=== PATIENT | male | born 1945 | race Caucasian/White ===

== ENCOUNTER → 2016-05-12 | Outpatient (CLI) | payer MEDICARE | LOC: GMAB 18:14 | PROVIDERS: ATTEND Family Medicine | DX: R06.02 Shortness of breath (principal) ==

== ENCOUNTER 2016-08-17 21:14 | Inpatient (IN) | payer MEDICARE ==
[2016-08-17] MEDS ORDERED: SODIUM CHLORIDE 0.9% 1000ML 1,000 ML IVS ONE (22:54)
[2016-08-17] MEDS ORDERED: PIPERACILLIN/TAZOBACTAM 3.375 GM in SODIUM CHLORIDE 0.9% 100ML 100 ML IVPB ONE (22:55)
[2016-08-17] MEDS ORDERED: MORPHINE SULFATE INJ 10 MG/ML VIAL IV ONE (22:55)
[2016-08-17] MEDS ORDERED: ACETAMINOPHEN 325 MG TAB PO ONE (23:16)
[2016-08-17] MEDS ORDERED: IBUPROFEN 200 MG TAB PO ONE (23:17)
[2016-08-18] MEDS ORDERED: PIPERACILLIN/TAZOBACTAM 3.375 GM VIAL IVPB ONE ×3 (00:09→07:27)
[2016-08-18] MEDS ORDERED: SODIUM CHLORIDE 0.9% 100ML 100 ML IVPB ONE ×3 (00:09→07:27)
--- NOTE | 2016-08-18 00:16 | CT ---
EXAM: CT abdomen and pelvis with contrast. INDICATION: Abdominal pain, acute. TECHNIQUE: Contiguous axial CT images of the abdomen and pelvis. Intravenous contrast: Present. Oral contrast: Absent. DLP 907 mGy-cm. This exam was performed according to our departmental dose-optimization program, which includes automated exposure control, adjustment of the mA and/or kV according to patient size and/or use of iterative reconstruction technique. COMPARISON: 04/15/2010. FINDINGS: Lower chest: Partially imaged. Lung bases: Unremarkable. Cardiac apex: Unremarkable. Solid abdominal viscera: Liver: Unremarkable. Gallbladder: Unremarkable. Pancreas: Unremarkable. Spleen: Unremarkable. Adrenal glands: Unremarkable. Right kidney: No hydronephrosis. Left kidney: No hydronephrosis. Urinary bladder: Unremarkable. Abdominal aorta: Unremarkable. Peritoneal: Free fluid: None. Free air: None. Other: No pathologic sized lymph nodes in the upper abdomen. Bowel: Stomach: Unremarkable. Small bowel: Unremarkable. Appendix: Unremarkable. Colon: Unremarkable. Rectum: Unremarkable. Prostate: Brachytherapy seeds are noted Bones: Unremarkable. IMPRESSION: 1. No CT evidence of acute process of the abdomen. Electronically signed by: Shahram Londono MD 08/18/2016 12:15 AM CDT
[2016-08-18] MEDS ORDERED: MORPHINE SULFATE INJ 10 MG/ML VIAL ONE (00:23)
[2016-08-18] MEDS ORDERED: KETOROLAC TROMETHAMINE INJ 30 MG/ML VIAL IV ONE (00:28)
[2016-08-18] MEDS ORDERED: POTASSIUM CHLORIDE ELIXIR 20 MEQ/15 ML UD ONE (00:44)
[2016-08-18] MEDS: POTASSIUM CHLORIDE ELIXIR 20 MEQ/15 ML UD PO ONE (00:50)
--- NOTE | 2016-08-18 01:09 | ED.PDOC ---
History of Present Illness - General Chief Complaint: Abdominal Pain Stated Complaint: fever, abd, back pain Time Seen by Provider: 08/17/16 22:44 Source: patient Exam Limitations: no limitations - History of Present Illness Initial Comments: the patient is a 71-year-old male presenting to the emergency room after approximately 24 hours of progressive abdominal pain area he has abdominal discomfort all over but the worst of it seems to be in the right side of the abdomen more so in the right lower quadrant. There is some radiation of pain to the back. No urinary symptoms. No pain down the testicle. He does have a known hydrocele on the right. The patient does have a history of significant vascular disease including requiring interventions for his renal arteries and iliacs. He does have a fever here and has had for about the last 6 hours. He apparently still has his appendix and his gallbladder. He had a little bit of mild nausea but no vomiting. No chest pain. No syncope or near syncope. No palpitations. Severity: moderate Improving Factors: nothing Worsening Factors: other - palpation and movement Associated Symptoms: fever/chills, loss of appetite, malaise Allergies/Adverse Reactions: Allergies NO KNOWN ALLERGY Allergy (Verified 04/02/15 08:44) Home Medications: Ambulatory Orders ALPRAZolam [Xanax] 0.25 mg PO TID 04/02/15 Allopurinol [Zyloprim] 300 mg PO BEDTIME 04/02/15 Aspirin 325 mg PO QD 04/02/15 Celecoxib 200 mg PO BEDTIME 04/02/15 Citalopram Hydrobromide 40 mg PO BEDTIME 04/02/15 Clopidogrel Bisulfate [Plavix] 75 mg PO QD 04/02/15 Furosemide 40 mg PO DAILY 04/02/15 Hydrochlorothiazide 25 mg PO DAILY@0700 04/02/15 Irbesartan 150 mg PO BID 04/02/15 Isosorbide Mononitrate [Isosorbide Mononitrate ER] 15 mg PO BID 04/02/15 Minoxidil 5 mg PO BID 04/02/15 Nitroglycerin 0.4 mg Tab [Nitrostat] 0.4 mg SL PRN PRN 04/02/15 Omeprazole 40 mg PO DAILY@0700 04/02/15 Potassium Chloride Tab [Micro-K] 10 meq PO BID 04/02/15 Ropinirole Hydrochloride [Ropinirole HCl] 4 mg PO BEDTIME 04/02/15 Rosuvastatin Calcium [Crestor] 5 mg PO BEDTIME 04/02/15 Tramadol HCl 50 mg PO Q4HR PRN 04/02/15 Zolpidem Tartrate 10 mg PO BEDTIME 04/02/15 amLODIPine BESYLATE [Norvasc] 10 mg PO BEDTIME 04/02/15 Cyclobenzaprine HCl [Flexeril] 10 mg PO Q8H PRN #40 tab 04/05/15 HYDROcodone 5MG/APAP 325MG [Randle 5/325] 1 ea PO .Q4-6H PRN #90 tab 04/05/15 Rivaroxaban [Xarelto] 10 mg PO QD #10 tab 04/05/15 Review of Systems - Review of Systems Constitutional: States: fever, malaise EENTM: States: no symptoms reported Respiratory: States: no symptoms reported Cardiology: States: no symptoms reported Gastrointestinal/Abdominal: States: abdominal pain, nausea Genitourinary: States: no symptoms reported Musculoskeletal: States: back pain - on the right Skin: States: no symptoms reported Neurological: States: no symptoms reported Endocrine: States: no symptoms reported All other Systems: No Change from Baseline Past Medical History (General) - Patient Medical History Hx Seizures: No Hx Stroke: No Hx Dementia: No Hx Asthma: No Hx of COPD: No Hx Cardiac Disorders: Yes Hx Congestive Heart Failure: No Hx Pacemaker: No Hx Hypertension: Yes Hx Thyroid Disease: No Hx Diabetes: Yes Hx Gastroesophageal Reflux: Yes Hx Renal Disease: No Hx Cancer: Yes Hx of HIV: No Hx Hepatitis C: No Hx MRSA: No - Vaccination History Hx Tetanus, Diphtheria Vaccination: Yes Hx Influenza Vaccination: Yes Hx Pneumococcal Vaccination: Yes Immunizations Up to Date: Yes - Social History Hx Tobacco Use: No Hx Chewing Tobacco Use: No Hx Alcohol Use: No Hx Substance Use: No Hx Substance Use Treatment: No Hx Depression: No Feels Threatened In Home Enviroment: No Feels Threatened In a Relationship: No Hx Physical Abuse: No Hx Emotional Abuse: No Hx Suspected Abuse: No - Female History Patient is a Female of Child Bearing Age (10 -59 yrs old): No Patient : No - Triage Comment ED Triage Comment: pt is hard of hearing Family Medical History - Family History Mother Family History: Unknown Physical Exam - Physical Exam General Appearance: Alert, Comfortable, No apparent distress Eye Exam: bilateral normal Ears, Nose, Throat: normal ENT inspection, normal pharynx Neck: non-tender, full range of motion Respiratory: chest non-tender, lungs clear, normal breath sounds, no respiratory distress, no accessory muscle use Cardiovascular/Chest: normal peripheral pulses, regular rate, rhythm, no edema Peripheral Pulses: radial,right: 2+, radial,left: 2+, dorsalis pedis,right: 2+, dorsalis pedis,left: 2+ Gastrointestinal/Abdominal: other - the patient is morbidly obese. The patient does have some guarding to the right lower quadrant. He also has some right- sided costovertebral angle tenderness. No definite palpable mass. 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 Blood culture has been performed. The patient is being placed on Zosyn empirically. Source of the fever and pain is not entirely defined at this time. The patient will be hydrated with IV fluids. Pain control is being given. The patient will need careful monitoring. Certainly repeat labs and radiological evaluation may be warranted if the patient's condition worsens or fails to improve. Consideration to surgical consultation in the morning should be given if the patient is failing to improve. CT scan and laboratory work are not entirely impressive at this point. Clinical exam is more concerning for undefined pathology. - Results/Orders Results/Orders: Laboratory Tests 08/17/16 08/17/16 08/17/16 23:10 23:10 23:10 WBC 3.9 L RBC 4.32 L Hgb 12.9 L Hct 38.0 L MCV 87.9 MCH 29.8 MCHC 34.0 RDW 16.0 H Plt Count 143 MPV 7.8 Absolute Neuts (auto) 3.20 Absolute Lymphs (auto) 0.40 L Absolute Monos (auto) 0.30 Absolute Eos (auto) 0.00 Absolute Basos (auto) 0.00 Neutrophils % 82.7 H Lymphocytes % 9.6 L Monocytes % 6.8 Eosinophils % 0.2 L Basophils % 0.7 PT 13.4 H INR 1.190 PTT (SP) 28.6 Sodium Potassium Chloride Carbon Dioxide Anion Gap BUN Creatinine BUN/Creatinine Ratio Random Glucose Serum Osmolality Lactic Acid Calcium Total Bilirubin AST ALT Alkaline Phosphatase Creatine Kinase 144 CK-MB (CK-2) 1.2 CK-MB (CK-2) % Not Reportable Troponin I 0.04 B-Natriuretic Peptide 231.0 H* Serum Total Protein Albumin Globulin Albumin/Globulin Ratio Amylase 34 Lipase Urine Color Urine Appearance Urine pH Ur Specific Spiro Urine Protein Urine Glucose (UA) Urine Ketones Urine Blood Urine Nitrite Urine Bilirubin Urine Urobilinogen Ur Leukocyte Esterase Urine RBC Urine WBC Ur Epithelial Cells Urine Bacteria 08/17/16 08/17/16 08/17/16 23:10 23:10 23:30 WBC RBC Hgb Hct MCV MCH MCHC RDW Plt Count MPV Absolute Neuts (auto) Absolute Lymphs (auto) Absolute Monos (auto) Absolute Eos (auto) Absolute Basos (auto) Neutrophils % Lymphocytes % Monocytes % Eosinophils % Basophils % PT INR PTT (SP) Sodium 136 Potassium 3.0 L Chloride 98 L Carbon Dioxide 31 Anion Gap 10.0 L BUN 25 H Creatinine 1.33 H BUN/Creatinine Ratio 18.8 Random Glucose 156 H Serum Osmolality 279.6 Lactic Acid 1.9 Calcium 9.0 Total Bilirubin 0.7 AST 29 ALT 28 Alkaline Phosphatase 65 Creatine Kinase CK-MB (CK-2) CK-MB (CK-2) % Troponin I B-Natriuretic Peptide Serum Total Protein 7.0 Albumin 3.7 Globulin 3.3 Albumin/Globulin Ratio 1.1 Amylase Lipase 18 L Urine Color Yellow Urine Appearance Clear Urine pH 5.5 Ur Specific Spiro 1.015 Urine Protein 30 Urine Glucose (UA) Negative Urine Ketones Trace Urine Blood Negative Urine Nitrite Negative Urine Bilirubin Negative Urine Urobilinogen 0.2 Ur Leukocyte Esterase Negative Urine RBC 0-1 Urine WBC 0-1 Ur Epithelial Cells 0-[address] scan abdomen and pelvis shows no definitive acute pathology. Multiple stents are in place. Departure - Departure Clinical Impression: Fever Abdominal pain Qualifiers: Abdominal location: right lower quadrant Qualified Code(s): R10.31 - Right lower quadrant pain Disposition: Admit Patient Instructions: DI for Abdominal Pain-Adult Referrals: Tommie Alonso MD [Primary Care Provider] - 1-2 Weeks Home Medications: Ambulatory Orders ALPRAZolam [Xanax] 0.25 mg PO TID 04/02/15 Allopurinol [Zyloprim] 300 mg PO BEDTIME 04/02/15 Aspirin 325 mg PO QD 04/02/15 Celecoxib 200 mg PO BEDTIME 04/02/15 Citalopram Hydrobromide 40 mg PO BEDTIME 04/02/15 Clopidogrel Bisulfate [Plavix] 75 mg PO QD 04/02/15 Furosemide 40 mg PO DAILY 04/02/15 Hydrochlorothiazide 25 mg PO DAILY@0700 04/02/15 Irbesartan 150 mg PO BID 04/02/15 Isosorbide Mononitrate [Isosorbide Mononitrate ER] 15 mg PO BID 04/02/15 Minoxidil 5 mg PO BID 04/02/15 Nitroglycerin 0.4 mg Tab [Nitrostat] 0.4 mg SL PRN PRN 04/02/15 Omeprazole 40 mg PO DAILY@0700 04/02/15 Potassium Chloride Tab [Micro-K] 10 meq PO BID 04/02/15 Ropinirole Hydrochloride [Ropinirole HCl] 4 mg PO BEDTIME 04/02/15 Rosuvastatin Calcium [Crestor] 5 mg PO BEDTIME 04/02/15 Tramadol HCl 50 mg PO Q4HR PRN 04/02/15 Zolpidem Tartrate 10 mg PO BEDTIME 04/02/15 amLODIPine BESYLATE [Norvasc] 10 mg PO BEDTIME 04/02/15 Cyclobenzaprine HCl [Flexeril] 10 mg PO Q8H PRN #40 tab 04/05/15 HYDROcodone 5MG/APAP 325MG [Randle 5/325] 1 ea PO .Q4-6H PRN #90 tab 04/05/15 Rivaroxaban [Xarelto] 10 mg PO QD #10 tab 04/05/15 Decision To Admit - Decistion To Admit Decision to Admit Reason: Medical Nature Decision to Admit Date: 08/18/16 Decision to Admit Time: 01:15
[2016-08-18] MEDS ORDERED: LIDOCAINE VIS-MYLANTA 30 ML UD PO ONE (01:55)
[2016-08-18] MEDS ORDERED: HYDROcodone 10MG/APAP 325MG 1 EA TAB ONE ×2 (01:55→22:05)
[2016-08-18] MEDS ORDERED: KETOROLAC TROMETHAMINE INJ 30 MG/ML VIAL ONE (01:56)
[2016-08-18] MEDS: HYDROcodone 10MG/APAP 325MG 1 EA TAB PO ONE (02:13)
[2016-08-18] MEDS: LIDOCAINE VIS-MYLANTA 30 ML UD PO ONE ×2 (02:13→02:14)
[2016-08-18] MEDS ORDERED: VANCOMYCIN HCL INJ 1,000 MG, VANCOMYCIN HCL INJ 250 MG in SODIUM CHLORIDE 0.9% 250ML 25... IVPB ONE (02:15)
[2016-08-18] MEDS ORDERED: SODIUM CHLORIDE 0.9% 1000ML 1,000 ML IVS ONE (02:16)
[2016-08-18] MEDS ORDERED: VANCOMYCIN HCL INJ 1,000 MG VIAL IVPB ONE (02:18)
[2016-08-18] MEDS ORDERED: VANCOMYCIN HCL INJ 500 MG VIAL ONE (02:18)
[2016-08-18] MEDS ORDERED: SODIUM CHLORIDE 0.9% 250ML 250 ML ONE (02:19)
[2016-08-18] MEDS ORDERED: methylPREDNISolone SODIUM SUC 125 MG/2 ML VIAL IV ONE (02:24)
--- NOTE | 2016-08-18 02:59 | HP ---
HISTORY OF PRESENT ILLNESS: This 71-year-old, white male was admitted to the hospital via the Emergency Room in an acute abdominal discomfort, right lower quadrant with associated fever state. He received vancomycin and some Zosyn in the Emergency Room which began the process of treating an unknown possible infection. The patient admits having come down with some upper respiratory symptoms with nasal congestion and malaise and started to get sick a couple of days before his arrival in the Emergency Room. His temperature was very elevated initially and he was full of malaise as well as right lower quadrant abdominal pain. He has had the abdominal discomfort in the right groin region usually associated with the upper respiratory symptoms on several occasions over the last several years. He had driven to [place] yesterday and had to exert himself by pushing a heavy object with his arms. He subsequently did have some low back discomfort, but does not feel it was directly related to the strenuous exertion. The patient's condition was serious enough that he was placed in the hospital for an overnight observation to rule out any underlying pathology contributing to his current symptoms. His appetite is decreased for the last couple of days. Last bowel movement was also a couple of days before admission. He is followed by Dr. Alonso in the clinic. He was last seen by Dr. Alonso about a week ago. Some constipation noted and he was started on MiraLAX at that clinic visit. He did blow his nose with a large volume of secretions with associated blood also noted after arrival in the hospital. PAST MEDICAL HISTORY: 1. Prostate cancer with radiation seeds placed. 2. Myocardial infarction in the past with coronary artery stents placed. 3. Hypertension, treated. 4. Renal artery stents, which have helped his hypertension. PAST SURGICAL HISTORY: 1. Radiation implants to the prostate. 2. Right elbow surgery, having to be incised and drained for an infection as well as left total knee arthroplasty performed in March [address] Alfred. CURRENT MEDICATIONS: Please refer to nursing notes for an up to date list of medications taken by the patient. ALLERGIES: NONE KNOWN. FAMILY HISTORY: Positive for diabetes, cancer, coronary artery disease. 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 He stopped smoking in 1954 after a few months of smoking. REVIEW OF SYSTEMS: GENERAL: Some weight gain in the past. No significant weight loss recently. LUNGS: Shortness of breath upon exertion. CARDIOVASCULAR: No significant chest pains recently, no palpitations. GASTROINTESTINAL: Abdomen quite distended. Decreased appetite recently. Some constipation noted. No blood in the stools. No nausea or vomiting. GENITOURINARY: No dysuria, but questionable decreased flow at times because of the enlarged prostate. PHYSICAL EXAMINATION: VITAL SIGNS: Initial temperature 102.5, down to 97. Pulse 66. Blood pressure 137/79. Room air saturation 98%. GENERAL: The patient is awake, alert, oriented and communicative. He was in distress when he first came in and seemed to relax as his temperature resolved. LUNGS: Diminished breath sounds bilaterally. No significant rales or rhonchi present. CARDIOVASCULAR: No significant murmurs or gallops. ABDOMEN: Soft with good bowel tones. Mild tenderness in the right lower quadrant and right groin region which cleared up as the temperature resolved. No organomegaly noted, but fairly significant tightness with swelling of the abdomen with distention. EXTREMITIES: Fairly well-formed. NEUROLOGIC: No focal neurological deficits are noted. The patient is awake, alert, oriented and communicative. LABORATORY: White count 3,900 with 83% neutrophils, hemoglobin 12.9, INR 1.19. Chemistries show potassium low at 3, BUN 25, creatinine 1.33. Sugar fasting 145. Lactic acid 1.9. Liver otherwise within normal limits. Beta natriuretic peptide 231. Troponin 0.04. Albumin 3.7. Amylase and lipase normal. Urinalysis generally clean. Blood cultures are negative. Abdominopelvic CT scan showed no acute findings. Abdominal ultrasound failed to show any significant findings other than fatty infiltration of the liver with mild hepatomegaly. Chest x-ray was performed and revealed borderline cardiomegaly, but no congestive heart failure. ASSESSMENT: 1. Acute abdominal pain, right groin region, recurrent in nature and generally associated with upper respiratory symptoms, possibly a viral illness with regional lymphadenitis versus an inguinal hernia presentation requiring further followup. 2. Febrile illness, rule out significant etiology for this fever. 3. History of coronary artery disease with coronary stents and history of myocardial infarction in the past. 4. Significant hypertension with history of renal artery stenosis requiring stent placement. 5. Atherosclerotic cardiovascular disease. 6. Obesity. 7. Chronic constipation, possibly contributing to some of the abdominal discomfort. PLAN: Continue to observe closely. Increase activity level. Decrease IV rate at this time and observe close. Continue Rocephin antibiotics at least overnight because of the significant febrile state. We will encourage Milk of Magnesia to have a bowel movement to see if it will assist with some of the abdominal discomfort which is already feeling improved as the fever has resolved. Close followup necessary with Dr. Alonso upon discharge. #[id number] [facility]
[2016-08-18] MEDS ORDERED: SODIUM CHLORIDE 0.9% 1000ML 1,000 ML IVS PRN (04:47)
[2016-08-18] MEDS ORDERED: PIPERACILLIN/TAZOBACTAM 3.375 GM in SODIUM CHLORIDE 0.9% 100ML 100 ML IVPB ONE (06:00)
--- NOTE | 2016-08-18 07:01 | RAD ---
Procedure: XR ABDOMEN 1 VIEW (KUB) Exam Date: 08/18/2016 Ordering Provider: KELI VASQUEZ Clinical Indication: abd pain Comparison: 08/17/2016 CT abdomen pelvis Findings: Brachytherapy seeds. There is no bowel distention. There is no pneumoperitoneum. There are no suspicious calcifications. There is no acute skeletal abnormality. Impression: 1. No acute findings. Electronically signed by: Jabari Abdul MD 08/18/2016 7:00 AM CDT
[2016-08-18] MEDS ORDERED: SODIUM CHLORIDE 0.9% (FLUSH) 10 ML SYG IV PRN (07:14)
[2016-08-18] MEDS ORDERED: IV SET AND CAP CHANGE INJ INJ SCH ×2 (07:30→11:00)
--- NOTE | 2016-08-18 10:20 | US ---
EXAM DESCRIPTION: Abdomen,Complete CLINICAL HISTORY: right abdominal pain, fever COMPARISON: CT scan August 17, 2016 TECHNIQUE: Real-time sonographic images of the abdomen are obtained. FINDINGS: Pancreas is unremarkable. The right lobe of the liver measures 17.7 cm. The liver is diffusely heterogeneous and increased in echogenicity. No focal hepatic mass is seen. The gallbladder is normally distended and free of abnormal internal echogenicities. No gallbladder wall thickening or pericholecystic fluid is seen. The common bile duct measures 6 mm in greatest diameter. The right kidney measures 13.9 x 6.0 x 5.7 cm. The left kidney measures 13.4 x 7.0 x 6.0 cm. Both kidneys show normal renal cortical echogenicity. No hydronephrosis is seen. The spleen measures 13.4 cm. Visualized IVC and abdominal aorta are within normal limits. IMPRESSION: Hepatomegaly with evidence of diffuse fatty infiltration of the liver. Otherwise unremarkable abdominal ultrasound. Electronically signed by: Maxi Landeros MD 08/18/2016 10:18 AM CDT
[2016-08-18] MEDS ORDERED: MAGNESIUM HYDROXIDE 30 ML UD PO PRN (10:41)
[2016-08-18] MEDS ORDERED: ACETAMINOPHEN 325 MG TAB PO PRN (10:41)
[2016-08-18] MEDS ORDERED: POTASSIUM CHLORIDE 10 MEQ TAB PO SCH (11:00)
[2016-08-18] MEDS: POTASSIUM CHLORIDE 10 MEQ TAB PO SCH ×2 (12:43→17:24)
--- NOTE | 2016-08-18 13:39 | RAD ---
Chest two views INDICATION: Fever abdominal pain COMPARISON: June 05, 2014 IMPRESSION: Borderline cardiomegaly. No florid failure. Slight interstitial prominence diffusely. There is pleural thickening along the mid right lateral pleura nonspecific. Small hiatal hernia suggested. No pleural effusion or pneumothorax noted. Degenerative shoulders with chronic rotator cuff tear on the left. Electronically signed by: Conrado Rodriguez MD 08/18/2016 1:37 PM CDT
[2016-08-18] MEDS ORDERED: MAGNESIUM HYDROXIDE 30 ML UD PO ONE (13:45)
[2016-08-18] MEDS ORDERED: SODIUM CHLORIDE 0.9% (FLUSH) 10 ML SYG IV SCH (15:00)
[2016-08-18] MEDS ORDERED: SODIUM CHL 0.9% 50ML MIN-BAG+ 50 ML IVPB ONE (15:02)
[2016-08-18] MEDS ORDERED: cefTRIAXone SODIUM 1 GM VIAL ONE (15:03)
[2016-08-18] MEDS: cefTRIAXone SODIUM 1 GM in SODIUM CHL 0.9% 50ML MIN-BAG+ 50 ML IVPB SCH (15:48)
[2016-08-18] MEDS ORDERED: CLOPIDOGREL 75 MG TAB PO SCH (18:30)
[2016-08-18] MEDS ORDERED: CITALOPRAM HBR 20 MG TAB ONE (19:59)
[2016-08-18] MEDS ORDERED: CELECOXIB 100 MG CAP ONE (19:59)
[2016-08-18] MEDS: traZODone HCL 100 MG TAB PO SCH (20:38)
[2016-08-18] MEDS: IRBESARTAN 150 MG PO SCH (20:38)
[2016-08-18] MEDS: GABAPENTIN 300 MG CAP PO SCH (20:38)
[2016-08-18] MEDS: SODIUM CHLORIDE 0.9% (FLUSH) 10 ML SYG IV SCH (20:39)
[2016-08-18] MEDS ORDERED: metFORMIN HCL 500 MG TAB PO SCH (21:00)
[2016-08-18] MEDS ORDERED: amLODIPine BESYLATE 5 MG TAB PO SCH (21:00)
[2016-08-18] MEDS ORDERED: NON-FORMULARY MEDICATION 1 EA MIS (Celecoxib [Celecoxib] 200 MG) PO SCH (21:00)
[2016-08-18] MEDS ORDERED: NON-FORMULARY MEDICATION 1 EA MIS (Ropinirole Hydrochloride [Ropinirole Hcl] 4 MG) PO SCH (21:00)
[2016-08-18] MEDS ORDERED: NON-FORMULARY MEDICATION 1 EA MIS (Citalopram Hydrobromide [Citalopram Hydrobromide] 40 MG PO SCH (21:00)
[2016-08-18] MEDS: HYDROcodone 10MG/APAP 325MG 1 EA TAB PO PRN (22:34)
[2016-08-19] MEDS ORDERED: cefTRIAXone SODIUM 1 GM VIAL ONE ×2 (02:15→14:13)
[2016-08-19] MEDS ORDERED: SODIUM CHL 0.9% 50ML MIN-BAG+ 50 ML IVPB ONE ×2 (02:15→14:12)
[2016-08-19] MEDS: cefTRIAXone SODIUM 1 GM in SODIUM CHL 0.9% 50ML MIN-BAG+ 50 ML IVPB SCH ×2 (02:22→14:19)
[2016-08-19] MEDS: SODIUM CHLORIDE 0.9% (FLUSH) 10 ML SYG IV PRN (02:22)
[2016-08-19] MEDS ORDERED: OMEPRAZOLE CAP 20 MG CAP PO SCH (06:30)
[2016-08-19] MEDS ORDERED: NON-FORMULARY MEDICATION 1 EA MIS (Omeprazole [Omeprazole] 40 MG) PO SCH (07:00)
[2016-08-19] MEDS: GABAPENTIN 300 MG CAP PO SCH ×3 (09:05→21:35)
[2016-08-19] MEDS: metFORMIN HCL 500 MG TAB PO SCH ×2 (09:05→17:11)
[2016-08-19] MEDS: FUROSEMIDE 40 MG TAB PO SCH (09:06)
[2016-08-19] MEDS: CLOPIDOGREL 75 MG TAB PO SCH (09:06)
[2016-08-19] MEDS: POTASSIUM CHLORIDE 10 MEQ TAB PO SCH ×3 (09:06→17:11)
[2016-08-19] MEDS: SODIUM CHLORIDE 0.9% (FLUSH) 10 ML SYG IV SCH ×2 (10:02→23:09)
[2016-08-19] MEDS: VALSARTAN 80 MG TAB PO SCH ×2 (10:03→21:36)
[2016-08-19] MEDS: IRBESARTAN 150 MG PO SCH (10:39)
--- NOTE | 2016-08-19 12:55 | PN ---
DATE: 08/19/16 SUBJECTIVE: The patient is lying in the bed resting with his nasal prong BiPAP in place which significantly helps his sleep apnea. He had a fairly good night. He is not symptomatic with shortness of breath, diaphoresis, chest pain , or lightheadedness. He is able to sit up to eat. Of concern is his slow pulse in the 30s and 40s. 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 OBJECTIVE: VITAL SIGNS: Afebrile. Pulse in the mid 30s to low 40s with frequent PVCs with multifocality and marked sinus bradycardia with sinus pauses. Blood pressure 122/77 at 2 AM. 142/66 at 6 AM this morning. Pulse oximetry 99% on room air. LABORATORY: White count 6,600, which is up with normal differential of 74%, hemoglobin 12. Chemistries show potassium after supplementation up from 3 to 3.6, BUN down to 20, creatinine 0.85, glucose 165, calcium 8.7, magnesium normal at 2. TSH normal at 0.49. Stool guaiac is negative. ASSESSMENT: 1. Acute abdominal pain, right groin region, recurrent in nature and generally associated with upper respiratory symptoms in the past, possible viral illness with regional lymphadenitis versus an inguinal hernia presentation requiring further followup with Dr. Brink. 2. Febrile illness, resolved. 3. 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 4. Atherosclerotic cardiovascular disease. 5. History of hypertension with renal artery stenosis with stent placement in the past. 6. History of coronary artery disease with coronary stents and history of myocardial infarction in the past. 7. Exogenous obesity. 8. Chronic constipation, possibly contributing to some of his abdominal discomfort. PLAN: The patient is discussed with Dr. Alonso as well as with Dr. Garcia, atm mechanic in [place], . Drama Critic wishes us to continue with observation with telemetry tonight with the patient with increased activity level. We will stop the Norvasc, which he has been taking at h.s. If he needs it for continued blood pressure control, we will start again at a lower dose such as 2.5 or 5 mg and in the morning instead of in the evening. Increased activity today and continue observation. Plan home in the morning with followup with Dr. Alonso and Dr. Garcia as stable. Eventual pacemaker may be indicated as the patient's clinical course is continued to be monitored. #[id number] [facility]
[2016-08-19] MEDS ORDERED: NITROGLYCERIN 0.4 MG 25 EA TAB SL ONE ×2 (16:19→16:22)
[2016-08-19] MEDS: HYDROcodone 10MG/APAP 325MG 1 EA TAB PO PRN (16:28)
[2016-08-19] MEDS: ALPRAZolam 0.25 MG TAB PO PRN ×2 (16:28→23:12)
[2016-08-19] MEDS ORDERED: NITROGLYCERIN 0.4 MG 25 EA TAB SL PRN (16:57)
--- NOTE | 2016-08-19 17:17 | PN ---
DATE: 08/19/16 ADDENDUM TO PROGRESS NOTE SUBJECTIVE: The patient was lying in the bed on his right side down after lunch when he suddenly had severe discomfort which he locates in his epigastric region and to the left of midline. The nurses were able to relieve the pain completely with a Nitroglycerin sublingual 0.4 mg. He has had this pain before. About 2 weeks ago, he had an echocardiogram and a treadmill exercise test, and a week ago he had the report from his global risk management director in [place] that he passed the test nicely. He has had a history of a coronary stent in the past that had closed down with some resultant collateral circulation present. There is a strong family history of esophageal symptoms as described by other members of his family. OBJECTIVE: See vitals. The patient is otherwise stable with no pain after the Nitroglycerin. He was a little anxious and is better after having some anti- anxiety medications as well. Epigastric is still slightly tender to palpation. Heart and lungs otherwise within normal limits. EKG does show some increased pulse rate with pulse averaging in the mid 50s instead of the mid 30s as noted earlier after having the Norvasc stopped. ASSESSMENT: 1. Chest pain, rule out underlying ischemic coronary disease with serial EKG and cardiac enzymes. The possibility of esophageal spasm with reflux disease also to be considered with close followup overnight. PLAN: Will continue with repeat cardiac enzymes, especially troponin at 2300 tonight and again in the morning at 5:00 AM. Other electrolytes and blood counts will also be obtained. He is started on Carafate as well as continued on his Protonix. Special attention to try to avoid lying down on a full stomach as possible. Antireflux principles discussed. Close followup necessary and review with his global risk management director if any abnormalities are evident. #[id number] [facility]
[2016-08-19] MEDS ORDERED: HYDROcodone 10MG/APAP 325MG 1 EA TAB PO PRN (19:30)
[2016-08-19] MEDS ORDERED: CELECOXIB 100 MG CAP PO SCH (21:00)
[2016-08-19] MEDS ORDERED: CITALOPRAM HBR 20 MG TAB PO SCH (21:00)
[2016-08-19] MEDS: SUCRALFATE 1 GM/10 ML 1 GM UD PO SCH (21:34)
[2016-08-19] MEDS: traZODone HCL 100 MG TAB PO SCH (21:35)
[2016-08-20] MEDS ORDERED: cefTRIAXone SODIUM 1 GM VIAL ONE (01:16)
[2016-08-20] MEDS ORDERED: SODIUM CHL 0.9% 50ML MIN-BAG+ 50 ML IVPB ONE (01:16)
[2016-08-20] MEDS: cefTRIAXone SODIUM 1 GM in SODIUM CHL 0.9% 50ML MIN-BAG+ 50 ML IVPB SCH (01:50)
[2016-08-20] MEDS: SODIUM CHLORIDE 0.9% (FLUSH) 10 ML SYG IV PRN (01:51)
[2016-08-20] MEDS ORDERED: PANTOPRAZOLE SODIUM TAB 40 MG PO ONE (02:55)
--- NOTE | 2016-08-20 03:24 | PCM.CORE ---
Physician DVT/VTE - Prophylaxis Currently: Patient already on anticoagulation therapy - Nurse DVT Assessment & Total Each Risk Factor Represents 3 Points: Medical PT with Hx of NM, CHF, Severe infection/sepsis Each Risk Factor Represents 1 Point: Minor Surgery Planned Each Risk Factor is 1 Point: Varicose Veins/Edema Legs, Obesity (BMI >25) DVT Assessment Score: 6
[2016-08-20] MEDS ORDERED: ENOXAPARIN SODIUM 40 MG/0.4 ML SYG SUBCU SCH ×2 (03:30→21:00)
[2016-08-20] MEDS: SUCRALFATE 1 GM/10 ML 1 GM UD PO SCH ×2 (05:59→10:38)
[2016-08-20] MEDS ORDERED: OMEPRAZOLE CAP 20 MG CAP PO SCH (06:30)
[2016-08-20] MEDS ORDERED: PANTOPRAZOLE SODIUM TAB 40 MG PO SCH (06:30)
[2016-08-20] MEDS: metFORMIN HCL 500 MG TAB PO SCH (07:46)
[2016-08-20] MEDS: POTASSIUM CHLORIDE 10 MEQ TAB PO SCH (07:47)
[2016-08-20] MEDS: VALSARTAN 80 MG TAB PO SCH (09:20)
[2016-08-20] MEDS: GABAPENTIN 300 MG CAP PO SCH (09:20)
[2016-08-20] MEDS: HYDROcodone 10MG/APAP 325MG 1 EA TAB PO PRN (09:20)
[2016-08-20] MEDS: SODIUM CHLORIDE 0.9% (FLUSH) 10 ML SYG IV SCH (09:20)
[2016-08-20] MEDS: CLOPIDOGREL 75 MG TAB PO SCH (09:20)
[2016-08-20] MEDS: FUROSEMIDE 40 MG TAB PO SCH (09:20)
[2016-08-20] MEDS: ALPRAZolam 0.25 MG TAB PO PRN (09:23)
[2016-08-20 11:47] VITALS: BP 137/61; TEMP 98.3; O2SAT 97
--- NOTE | 2016-08-21 10:40 | DS ---
SUPERVISING PHYSICIAN: Zia Merino MD DISCHARGE DIAGNOSIS: 1. Chest pain without any evidence of myocardial infarction with serial EKGs and cardiac enzymes being negative, felt likely to be secondary to esophageal spasm with some reflux disease. 2. Acute abdominal pain, right groin region, recurrent in nature, unknown etiology, possibly secondary to underlying viral illness versus pain secondary to chronic hydrocele versus inguinal hernia. 3. Febrile illness, resolved, possibly secondary to underlying viral illness. 4. Significant bradycardia with multifocal premature ventricular contractions contributing to bradycardic syndrome, felt to be related to calcium channel diane, Norvasc, stable once medication stopped. 5. Atherosclerotic cardiovascular disease. 6. History of hypertension with history of renal artery stenosis with stents placed in the past. 7. History of coronary artery disease with coronary stents and history of myocardial infarctions. 8. Exogenous obesity. 9. Chronic constipation, possibly contributing to some of the abdominal discomfort. HISTORY OF PRESENT ILLNESS: Mr. Torres is a 71-year-old, male patient who was admitted to the hospital via the Emergency Room in an acute abdominal discomfort, right lower quadrant with associated fever state. He received vancomycin and some Zosyn in the Emergency Room which began the process of treating an unknown possible infection. The patient admits having come down with some upper respiratory symptoms with nasal congestion and malaise and started manifest symptoms several days before his arrival in the Emergency Room. His temperature was very elevated initially on admission and he was having general malaise as well as right lower quadrant abdominal pain. He has had the abdominal discomfort in the right groin region usually associated with the upper respiratory symptoms on several occasions within the last year. Prior to admission to the Emergency Department, he had driven to [employer] the day before and had to exert himself by pushing a heavy object with his arms. He subsequently did have some low back discomfort, but does not feel it was directly related to the strenuous exertion. Given the patient's symptomatology, the patient was placed in observation overnight to rule out any underlying pathology contributing to his current symptoms. His appetite had been decreased over the last several days and last bowel movement was a couple of days before admission. He is followed by Dr. Alonso in the clinic. He was last seen by Dr. Alonso about a week previous to this admission. Some constipation was noted and he was started on MiraLAX at that clinic visit. He did blow his nose with a large volume of secretions with associated blood also noted after arrival to the hospital. The patient was admitted to the hospital in stable condition. LABORATORY: Initial white count on admission was 3.9, hemoglobin 12.9, hematocrit 30.0, platelet count 142,000, differential initially showing left shift. Prior to discharge, his white count had normalized to 6.6, hemoglobin and hematocrit were stable and platelet count was 143 with differential now normalized. Coagulation studies showed just a slightly elevated PT of 13.4, otherwise, PT-T within normal limits. Chemistries initially on admission showed hypokalemia with potassium 3.0, BUN 25, creatinine 1.33. He had a slightly elevated BNP of 231. Troponin was 0.04. Liver functions were within normal limits. Amylase 34, lipase 18. TSH 4.9. Urinalysis was within normal limits. He had one occult blood that was negative. Final chemistries prior to discharge showed low potassium 3.3, otherwise liver functions were within normal limits. BUN and creatinine had improved and was down to BUN 14 and creatinine 0.85. Calcium 8.4. He had three additional troponins that were 0.02. EKG showed sinus bradycardia with a few PVCs, but no ST or T wave changes noted. RADIOLOGY: CT of the abdomen and pelvis with contrast on admission to the Emergency Department and per radiology interpretation there was no CT evidence of acute processes of the abdomen. This was followed up with an abdominal x- ray on 08/18/16 and again there were no acute findings per radiology interpretation. He also had an ultrasound of the abdomen and per radiology interpretation was note of hepatomegaly with evidence of diffuse fatty infiltration of the liver, otherwise, unremarkable abdominal ultrasound. Chest x-ray per radiology interpretation showed borderline cardiomegaly with no obvious failure. There was mention of mild hiatal hernia suggested. HOSPITAL COURSE: Mr. Torres was admitted through the Emergency Department as noted in history of present illness for abdominal pain. He had a complete workup which failed to present anything acutely. He did have a fever of 102 on admission which resolved. Through the entire admission after admission to the Floor, T-max was 99.7. He remained hemodynamically stable with blood pressure initially on admission 137/79 and at discharge it was 137/61. He was able to utilize his BiPAP and the day before discharge, he started experiencing some chest discomfort along with bradycardia. Therefore, he was kept an additional 24 hours. His jig operator, Dr. Garcia, was contacted and recommended he be taken off Norvasc and be observed at least another 24 hours overnight to further rule out any complications. On the morning of discharge, the patient was without any chest pains and was anxious to go home. He was felt clinically well enough to be discharged to have close clinical followup with both his primary care provider, Dr. Alonso, and his jig operator, Dr. Garcia. The patient was started on antibiotics to include Rocephin, however, at time of discharge no additional antibiotics were continued as there were no other signs of infection. PLAN: Mr. Torres was discharged on 08/20/16 and instructed to continue with followup as scheduled with Dr. Alonso and his jig operator, Dr. Garcia, which is scheduled for 09/08/16 at 14:20. He was also to have clinical followup with Dr. Alonso on 08/27/16 at 9:45. He was instructed to take his home medications except for holding Norvasc and he was seen in followup. He was to wear a heart monitor as instructed to include both a Holter monitor and an event monitor. He was to have no strenuous exercise until he could be cleared by his jig operator or instructed by Dr. Alonso. He was told to return to the hospital should he have any worsening of his symptoms or other concerning symptomatology. At discharge, he had one new prescription for Protonix 40 mg daily, #30. He was to resume all home medications except for Norvasc, which he was to hold until he was seen in followup. Diet at discharge was diabetic. Activity was as tolerated with no strenuous exercise. Condition at discharge was stable. #[id number] [facility]
== END 2016-08-20 12:14 | disposition home or self-care (01) | DRG 392 ==
LOC: ER 21:14 → MS 08-18 02:58 → OBSVTOIN 08-18 02:58
PROVIDERS: ADMIT Emergency Medicine; ATTEND Nurse Practitioner Family
PROC: BW21YZZ Computerized Tomography (CT Scan) of Abdomen and Pelvis using Other Contrast (ICD-10-PCS; principal; 2016-08-17)
DX: K21.9 Gastro-esophageal reflux disease without esophagitis (principal); T82.897A Other specified complication of cardiac prosthetic devices, implants and grafts, initial encounter; Z68.41 Body mass index [BMI] 40.0-44.9, adult; K22.4 Dyskinesia of esophagus; R10.31 Right lower quadrant pain; N43.3 Hydrocele, unspecified; K40.90 Unilateral inguinal hernia, without obstruction or gangrene, not specified as recurrent; B34.9 Viral infection, unspecified; R00.1 Bradycardia, unspecified; T46.1X5A Adverse effect of calcium-channel blockers, initial encounter; Y92.9 Unspecified place or not applicable; I25.10 Atherosclerotic heart disease of native coronary artery without angina pectoris; E11.9 Type 2 diabetes mellitus without complications; K59.00 Constipation, unspecified; I10 Essential (primary) hypertension; I25.2 Old myocardial infarction; Z85.46 Personal history of malignant neoplasm of prostate; Z92.3 Personal history of irradiation; Z96.652 Presence of left artificial knee joint; Z87.891 Personal history of nicotine dependence; G47.30 Sleep apnea, unspecified; E66.9 Obesity, unspecified; Z95.5 Presence of coronary angioplasty implant and graft; Z79.82 Long term (current) use of aspirin; Z79.899 Other long term (current) drug therapy; Z79.01 Long term (current) use of anticoagulants; Z95.820 Peripheral vascular angioplasty status with implants and grafts

== ENCOUNTER → 2016-11-18 | Outpatient (CLI) | payer MEDICARE | LOC: GMAB 14:33 | PROVIDERS: ATTEND Family Medicine | DX: I10 Essential (primary) hypertension (principal); Z85.46 Personal history of malignant neoplasm of prostate ==

== ENCOUNTER → 2017-02-23 | Outpatient (CLI) | payer MEDICARE | END | disposition home or self-care (01) | LOC: GMAB 14:12 | PROVIDERS: ATTEND Family Medicine | DX: J96.00 Acute respiratory failure, unspecified whether with hypoxia or hypercapnia (principal); J96.90 Respiratory failure, unspecified, unspecified whether with hypoxia or hypercapnia ==

== ENCOUNTER → 2017-03-18 | Outpatient (CLI) | payer MEDICARE ==
--- NOTE | 2017-03-18 17:31 | US ---
PROCEDURE: Venous,Lower Extremity LT CLINICAL HISTORY and INDICATION: Left leg pain COMPARISON: None. TECHNIQUE: Castellon scale imaging with duplex interrogation of the left lower extremity venous system was performed and multiple static images were obtained. FINDINGS: Utilizing compression and augmentation, there is no deep venous thrombus in the common femoral, superficial femoral or popliteal veins. The posterior tibial and deep peroneal veins are patent and compressible. . The greater saphenous vein at the saphenofemoral junction is patent and compressible. There is no visualization of any subcutaneous fluid collections. There is no visualization of any fluid collections in the left popliteal fossa. There is no evidence of reactive or pathological lymphadenopathy in the evaluated left lower extremity. IMPRESSION: No deep venous thrombosis of the left lower extremity. Location of Interpretation: [id number] Electronically signed by: Dilshad Valentine MD 03/18/2017 5:30 PM [facility] Workstation: [id number]
--- NOTE | 2017-03-18 20:22 | MRI ---
EXAM DESCRIPTION: Brain w/oContrast CLINICAL HISTORY: MUSCLE WEAKNESS COMPARISON: None TECHNIQUE: Multiplanar images of the brain were obtained without the administration of intravenous contrast FINDINGS: CSF spaces are unremarkable. There is no abnormal extra-axial fluid collection. There is no abnormal diffusion signal to suggest acute ischemia. Ventricular system is not dilated. Brain parenchyma is of normal configuration and signal. IMPRESSION: Normal exam. Electronically signed by: Jasen Stokes 03/18/2017 8:20 PM [facility]
== END | disposition home or self-care (01) ==
LOC: MRI 14:13
PROVIDERS: ATTEND Family Medicine
DX: M62.81 Muscle weakness (generalized) (principal); M79.605 Pain in left leg

== ENCOUNTER → 2017-05-07 | Outpatient (CLI) | payer MEDICARE ==
--- NOTE | 2017-05-07 21:06 | NM ---
EXAM DESCRIPTION: Bone Scan, 3Phase CLINICAL HISTORY: BONE LESION back posterior rib. Prostate cancer. COMPARISON: Imaging from outside facility not available at this time. TECHNIQUE: Patient injected with 26.4 mCi of technetium 99M MDP IV. Delayed gamma camera images from various planes were obtained 3 hr after injection. FINDINGS: Small focal region of increased activity on the left posterior midnight rib. Activity in the other ribs is unremarkable. Activity at the left 11th and 12th costovertebral junctions may be degenerative. Activity bilaterally in the approximate region of the L5-S1 facet joints may represent degenerative changes. Activity in the bilateral SI joint regions in the mid sacrum could be due to proximity to the camera on the posterior view or activity in the bladder projecting over the sacrum. No abnormal activity in the flat bones of the pelvis on the long bones of the proximal femurs or humeral shafts. Photopenic activity in the left knee consistent with total knee arthroplasty. Minimal activity in the right knee is most likely degenerative change. Activity in the bilateral glenohumeral joints and AC joints is most likely degenerative. Minimal activity in the lower cervical spine interpreted to be degenerative. Normal soft tissue activity in the urinary bladder and kidneys. IMPRESSION: 1. Focal activity in the left posterior ninth rib mid aspect could represent a fracture but cannot exclude metastatic disease. Recommend correlation with rib radiographs. 2. Activity in the bilateral L5-S1 facet joint region and in the left 11th and 12th costovertebral region is most likely degenerative. Consider correlation with radiographs. 3. Degenerative changes in the bilateral shoulder joints are also seen on prior chest x-ray of August 2016. Recommend correlation with activity in the SI joints and sacrum with pelvic radiographs. Electronically signed by: Jasen Kaiser MD 05/07/2017 9:04 PM [facility] Workstation: [id number]
== END | disposition home or self-care (01) ==
LOC: NM 09:08
PROVIDERS: ATTEND Family Medicine
DX: M89.58 Osteolysis, other site (principal)
CPT/HCPCS: 78315; A9503

== ENCOUNTER → 2017-05-14 | Outpatient (CLI) | payer MEDICARE ==
--- NOTE | 2017-05-16 21:30 | CT ---
EXAM DESCRIPTION: Abdomen/Pelvis w/Contrast: Computed tomography. CLINICAL HISTORY: HYDROCELE COMPARISON: Radionuclide total body bone scan 05/07/2017.. CT abdomen and pelvis with contrast 08/17/2016. TECHNIQUE: Spiral-axial scans at 5.0 - mm intervals from the lung bases through the pubic symphysis, after nonionic IV contrast. All scans performed after water-soluble oral contrast. Coronal and sagittal 2.0 - mm reconstructions. 10 minute and 15 minute Delayed helical 5.0 - mm scans, same levels. Coronal and sagittal reconstructions after 15 minute delay. No adverse reactions. Total Exam DLP: 4055.11 mGy-cm. This exam was performed according to our departmental CT dose-optimization program which includes automated exposure control, adjustment of the mA and/or kV according to patient size and/or use of iterative reconstruction technique; to reduce radiation dose to as low as reasonably achievable (ALARA). FINDINGS: Lung bases and pleura: Bilateral pleural thickening in the base and also lateral right pleura abutting the upper right lower lobe and the middle lobe. Liver, Spleen, Stomach, Adrenal glands: Diffuse low-density in the liver with no focal lesions. No enlargement. Left adrenal gland slightly prominent no mass. Other organs negative. Pancreas/Gallbladder/Ducts: Gallbladder is visualized. Duct not dilated. Fatty density of the pancreas. Kidneys and Ureters: No radiodense stones hydronephrosis. Pararenal fascial thickening bilaterally symmetric. Ureters are negative. Mesentery: No free air or fluid. No fatty stranding or fascial thickening. Aorta: Moderate atherosclerotic calcification mid and distal aorta with partial calcification of the inner lumen distal aorta. Significant calcification of major arteries originating from the aorta. Small Bowel: Contains oral contrast. Normal caliber. Terminal Ileum/Cecum: Normal caliber of the structures. Appendix visualized and normal caliber. Normal density of the surrounding fat. Colon: Contains oral contrast. No significant air-fluid levels. Fecal material distal transverse and distal colon. Small diverticula in the sigmoid colon. Moderate redundancy sigmoid. Pelvic Organs: Brachytherapy seeds in the prostate gland. Urinary bladder not distended. No fluid in the anterior peritoneal reflection. Seminal vesicles negative. No enlarged lymph nodes. Spine and Bony Pelvis: Spondylosis at multiple levels of the upper lumbar spine and included thoracic spine. Minimal anterior loss of vertebral body height at T12. Significant bilateral foraminal narrowing L5-S1. Superior endplate sclerosis at L1. Central sclerosis L3 vertebral bodies. Sclerosis at the junction of the S4 and S5 segments of the sacrum. No lytic destructive or fracture seen in the posterior left ninth ribs 9, 10, 11, or 12. Minimal sclerosis abutting the bilateral SI joints with gas formation in the joint spaces. Mixed lesion in the right iliac wing and small sclerotic lesions inferior right iliac superior to the right acetabulum.. Abdominal Wall/Back Soft Tissues: Fatty inguinal hernia not containing bowel on the right. Small fatty inguinal hernia on the left with fluid anterior to the superior left testicle. IMPRESSION: 1. Steatosis of the liver but no enlargement. No ascites. Ducts not dilated. Questionable gallbladder wall thickening. Steatosis of the pancreas. Steatosis stable since the prior study. Gallbladder stable since the prior study. No lesions in the posterior left ninth through 12th ribs corresponding with abnormality on bone scan. SI joint degenerative changes, mixed lesion in the right iliac wing, and sclerotic lesions superior to the right acetabulum are stable since the prior study. Sclerotic spine lesions are stable since the prior study. Spondylosis anterior T12-L1 is also unchanged. 3. Stable right inguinal hernia since the prior study containing no bowel. Hydrocele anterior to the upper left testicle. This region was not scanned on the prior study. 4. Pleural thickening stable since the prior study. Brachytherapy seeds are also present in the prostate gland on the prior study. Diffuse atherosclerotic calcifications of the mid and distal abdominal aorta and calcifications of the major vessels originating from the aorta was also seen on the prior study. Electronically signed by: Jasen Kaiser MD 05/16/2017 9:29 PM [facility] Workstation: [id number]
== END ==
LOC: CT 08:18
DX: N43.2 Other hydrocele (principal); K76.0 Fatty (change of) liver, not elsewhere classified; K40.90 Unilateral inguinal hernia, without obstruction or gangrene, not specified as recurrent; I70.0 Atherosclerosis of aorta

== ENCOUNTER → 2017-09-22 | Outpatient (CLI) | payer MEDICARE ==
--- NOTE | 2017-09-22 11:37 | US ---
EXAM DESCRIPTION: Testicular CLINICAL HISTORY: 72 years Male, MALE GENITAL DISORDER, HYDROCELE COMPARISON: None. TECHNIQUE: Scrotal testicular sonogram was performed including color Doppler imaging. FINDINGS: Right Right testicle measures 4.7 x 2.4 x 2.2 cm. Right testicle is homogeneous in texture with no intratesticular lesion. Normal echogenic mediastinum testis. Right epididymis is prominent measuring 1.5 cm in craniocaudal dimension with a cyst in the anterior aspect of the epididymal head measuring 1.3 cm in craniocaudal dimension. No hyperemia of the epididymis or testicle to suggest epididymoorchitis. Right epididymal tail is prominent with another small epididymal cyst 6 mm. Prominent soft tissue in the right upper scrotum may be fatty contents of inguinal scrotal hernia. No peristalsing bowel. Left Left testicle measures 4.3 x 2.3 x 2.2 cm. Left testicle is homogeneous in texture with no intratesticular lesion. Left epididymal head is mildly prominent measuring 9 mm in craniocaudal dimension. The amount of fluid around left testicle is within normal limits. Color Doppler imaging shows positive flow within the left testicle. No hyperemia of the left testicle or left epididymis. No varicocele. IMPRESSION: No acute process is identified on scrotal testicular sonogram. Electronically signed by: Gilbert Zabala MD 09/22/2017 11:34 AM CDT
== END ==
LOC: US 09:00
PROVIDERS: ATTEND Urology
DX: N50.811 Right testicular pain (principal); N43.2 Other hydrocele

== ENCOUNTER → 2018-01-15 | Outpatient (CLI) | payer MEDICARE ==
--- NOTE | 2018-01-18 10:59 | MRI ---
EXAM DESCRIPTION: Lumbar Spine w/o Contrast : Magnetic Resonance Imaging. CLINICAL HISTORY: LOW BACK PAIN COMPARISON: Lumbosacral spine radiographs at outside facility, 12/16/2017. TECHNIQUE: Multiplanar, multiple standard sequences, non contrast MRI, lumbar spine. FINDINGS: L5-S1: Disc desiccation and minimal disc space loss. No significant posterior bulging. Bilateral facet joint effusion and flavum ligament hypertrophy. Moderate canal narrowing and minimal bilateral subarticular recess narrowing abutting the bilateral S1 nerve roots. Bilateral borderline foraminal stenosis. L4-5: Disc space preserved with minimal disc desiccation but no bulging. Flavum ligament hypertrophy and morphology resulting in mild to moderate canal stenosis. Bilateral mild to moderate foraminal narrowing. L3-4: Disc space preserved with normal signal in the disc. Minimal flavum ligament hypertrophy. Minimal canal narrowing. Bilateral mild foraminal narrowing. L2-3: Disc desiccation and minimal disc space loss. No posterior bulging. Bilateral flavum ligament hypertrophy. Bilateral foramina are patent. Right anterior Modic type II endplate reactive changes with disc bulging and anterior spurs. L1-2: Disc desiccation and minimal disc space loss. Anterior and left side Modic type II endplate reactive changes with disc bulge and spur formation. Posterior elements unremarkable. Canal and foramina are patent. T12-L1: Normal signal in the disc. No posterior bulge with disc space preserved. Posterior elements unremarkable. Canal and foramina are patent. Conus terminates at this level. Anatomic curvature of the spine. Paravertebral soft tissues minimal paraspinal muscle atrophy.. Normal marrow signal in the remaining vertebral bodies and the posterior elements. Vertebral bodies are not compressed at any level. IMPRESSION: 1. Posterior flavum ligament hypertrophy with disc desiccation. Moderate canal narrowing and minimal bilateral subarticular recess narrowing abutting the bilateral S1 nerve roots. Bilateral borderline foraminal stenosis. 2. L4-5 multifactorial mild to moderate canal narrowing. Bilateral moderate foraminal narrowing. 3. Anterior moderate spondylosis at L1-L2 and L2-3. No canal or foraminal stenosis. Electronically signed by: Jasen Kaiser MD 01/18/2018 10:57 AM CDT
== END ==
LOC: MRI 14:08
PROVIDERS: ATTEND Family Medicine
DX: M47.896 Other spondylosis, lumbar region (principal); M54.5 Low back pain

== ENCOUNTER 2019-03-09 01:24 | Observation (INO) | payer MEDICARE ==
[2019-03-09] MEDS ORDERED: SODIUM CHLORIDE 0.9% (FLUSH) 10 ML SYG IV PRN ×2 (01:32→06:33)
--- NOTE | 2019-03-09 01:40 | ED.PDOC ---
History of Present Illness - General Chief Complaint: Chest Pain/MA Stated Complaint: chest pain Time Seen by Provider: 03/09/19 01:34 Source: patient Exam Limitations: no limitations - History of Present Illness Initial Comments: 74 yo M who presents for L sided chest pain, onset at 3pm, constant, no radiation, tightness in nature, associated SOB. Reports episodes over the past several weeks with exertion. Hx of MA with stents. Denies f/c, cough, congestion, abd pain, n/v/d, edema. No hx of DVT, PE. No recent immobilization, surgeries. Has been using his 's oxygen recently with improvement. Allergies/Adverse Reactions: Allergies NO KNOWN ALLERGY Allergy (Verified 03/09/19 04:33) Home Medications: Ambulatory Orders RX: Allopurinol [Zyloprim] 300 mg PO BEDTIME 04/02/15 RX: Celecoxib 200 mg PO BEDTIME 04/02/15 RX: Clopidogrel Bisulfate [Plavix] 75 mg PO BEDTIME 04/02/15 RX: Furosemide 40 mg PO BID 04/02/15 RX: Hydrochlorothiazide 25 mg PO DAILY 04/02/15 RX: Minoxidil 5 mg PO BID 04/02/15 RX: Nitroglycerin 0.4 mg Tab [Nitrostat] 0.4 mg SL PRN PRN 04/02/15 RX: Omeprazole 40 mg PO DAILY@0700 04/02/15 RX: Potassium Chloride Tab [Micro-K] 20 meq PO BID 04/02/15 RX: Ropinirole Hydrochloride [Ropinirole HCl] 8 mg PO BEDTIME 04/02/15 RX: Rosuvastatin Calcium [Crestor] 5 mg PO BEDTIME 04/02/15 RX: Gabapentin 600 mg PO TID 08/18/16 RX: Metformin HCl [Metformin Hydrochloride] 500 mg PO BIDFD 08/18/16 RX: Trazodone HCl 100 mg PO BEDTIME 08/18/16 RX: Pantoprazole Tablet [Protonix] 40 mg PO DAILY #30 08/20/16 Aspirin [Aspirin Childrens] 1 tablet PO DAILY 03/09/19 Citalopram Hydrobromide [Celexa] 40 mg PO BEDTIME 03/09/19 HYDROcodone 10MG/APAP 325MG [Cisco 10/325] 1 ea PO TID 03/09/19 Irbesartan [Avapro] 75 mg PO BID 03/09/19 Nitroglycerin 0.4 mg Tab [Nitrostat] 0 ea SL .Q5M PRN MDD 3 03/09/19 RX: Multiple Vitamin 1 tab PO DAILY 03/09/19 RX: Trazodone HCl 100 mg PO DAILY 03/09/19 Ropinirole Hydrochloride [Requip Xl] 4 mg PO DAILY 03/09/19 Rosuvastatin Calcium [Crestor] 10 mg PO BEDTIME 03/09/19 Review of Systems - Review of Systems Constitutional: Denies: chills, fever EENTM: States: no symptoms reported Respiratory: States: short of breath. Denies: cough, orthopnea Cardiology: States: chest pain. Denies: edema, palpitations Gastrointestinal/Abdominal: Denies: abdominal pain, constipation, diarrhea, nausea, vomiting Genitourinary: Denies: dysuria, frequency, hematuria Musculoskeletal: Denies: back pain, neck pain Skin: Denies: lesions, rash Neurological: Denies: headache, numbness, weakness Past Medical History (General) - Patient Medical History Hx Seizures: No Hx Stroke: No Hx Dementia: No Hx Asthma: No Hx of COPD: No Hx Cardiac Disorders: Yes Hx Congestive Heart Failure: No Hx Pacemaker: No Hx Hypertension: Yes Hx Thyroid Disease: No Hx Diabetes: Yes Hx Gastroesophageal Reflux: Yes Hx Renal Disease: No Hx Cancer: Yes Hx of HIV: No Hx Hepatitis C: No Hx MRSA: No - Vaccination History Hx Tetanus, Diphtheria Vaccination: Yes Hx Influenza Vaccination: Yes Hx Pneumococcal Vaccination: Yes - Social History Hx Tobacco Use: No Hx Chewing Tobacco Use: No Hx Alcohol Use: No Hx Substance Use: No Hx Substance Use Treatment: No Hx Depression: No Hx Physical Abuse: No Hx Emotional Abuse: No Hx Suspected Abuse: No - Female History Patient : No Family Medical History - Family History Father Living Status: Hx Family Asthma: No Hx Family Congestive Heart Failure: No Hx Family Hypertension: Yes Hx Family Stroke: Yes Hx Cardiac Disease: No Hx Family Diabetes: Yes Hx Family Cancer: No Mother Family History: Unknown Physical Exam - Physical Exam General Appearance: Alert, No apparent distress, Well Developed, Well Nourished Eyes, Ears, Nose, Throat Exam: PERRL/EOMI Neck: non-tender, full range of motion, supple, normal inspection Respiratory: chest non-tender, lungs clear, normal breath sounds, no respiratory distress, no accessory muscle use Cardiovascular/Chest: normal peripheral pulses, regular rate, rhythm, no edema, no gallop, no JVD, no murmur Peripheral Pulses: radial,right: 2+, radial,left: 2+ Gastrointestinal/Abdominal: non tender, soft, no organomegaly, no pulsatile mass Extremity: normal range of motion, non-tender, normal inspection, no pedal edema, no calf tenderness Neurologic: no motor/sensory deficits, alert, normal mood/affect, oriented x 3 Skin Exam: normal color, warm/dry Lymphatic: no adenopathy Progress - Progress Progress: 03/09/19 02:01 HEART score of 5. Pt will need admission for CP rule out. 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 All questions and concerns addressed. 03/09/19 02:47 Discussed with [facility] for hospitalist, accepts for admission. D-dimer pending, will follow. Aicha Jimenez MD Emergency Medicine Physician Billing Number [id number] - Results/Orders Results/Orders: Laboratory Results - last 24 hr 03/09/19 03/09/19 03/09/19 01:47 01:47 01:47 WBC 6.4 RBC 4.19 L Hgb 12.2 L Hct 37.2 L MCV 88.8 MCH 29.1 MCHC 32.8 L RDW 15.4 H Plt Count 202 MPV 8.2 Absolute Neuts (auto) 3.90 Absolute Lymphs (auto) 1.60 Absolute Monos (auto) 0.50 Absolute Eos (auto) 0.40 Absolute Basos (auto) 0.00 Neutrophils % 60.7 Lymphocytes % 24.6 Monocytes % 8.0 Eosinophils % 6.0 H Basophils % 0.7 D-Dimer, Quantitative Sodium 138 Potassium 3.7 Chloride 99 L Carbon Dioxide 29 Anion Gap 13.7 BUN 16 Creatinine 1.29 BUN/Creatinine Ratio 12.4 Random Glucose 100 Serum Osmolality 276.9 Calcium 9.2 Total Bilirubin 0.5 AST 21 ALT 16 Alkaline Phosphatase 57 Troponin I 0.04 B-Natriuretic Peptide Serum Total Protein 6.7 Albumin 3.7 Globulin 3.0 Albumin/Globulin Ratio 1.2 03/09/19 03/09/19 01:47 01:47 WBC RBC Hgb Hct MCV MCH MCHC RDW Plt Count MPV Absolute Neuts (auto) Absolute Lymphs (auto) Absolute Monos (auto) Absolute Eos (auto) Absolute Basos (auto) Neutrophils % Lymphocytes % Monocytes % Eosinophils % Basophils % D-Dimer, Quantitative 0.91 H* Sodium Potassium Chloride Carbon Dioxide Anion Gap BUN Creatinine BUN/Creatinine Ratio Random Glucose Serum Osmolality Calcium Total Bilirubin AST ALT Alkaline Phosphatase Troponin I B-Natriuretic Peptide 365.0 H* Serum Total Protein Albumin Globulin Albumin/Globulin Ratio CXR: EXAM: Single view chest. INDICATION: Chest pain. COMPARISON: Chest x-ray: 06/18/2016. FINDINGS: Cardiac silhouette: Enlarged Miesha: Mild pulmonary vascular congestion Lobar consolidation: None. Pleural effusion: None. Pneumothorax: None. Other: None. Bones: Unremarkable. Other: None. IMPRESSION: Mild pulmonary vascular congestion Electronically signed by: Shahram Londono MD 03/09/2019 2:08 AM HOST/HOSTESS GROUND CTA chest: EXAM: CT chest angiogram with contrast. INDICATION: Shortness of breath. TECHNIQUE: Contiguous axial CT images of the chest. Intravenous contrast: Present. Protocol: Pulmonary embolus (PE) protocol angiogram. Reformats: MIPs and MPRs created and utilized. DLP 809 mGy-cm. This exam was performed according to our departmental dose-optimization program, which includes automated exposure control, adjustment of the mA and/or kV according to patient size and/or use of iterative reconstruction technique. Note: LV=left ventricle. RV=right ventricle. COMPARISON: None. FINDINGS: Upper abdomen: Partially imaged. Thoracic aorta: Atherosclerotic calcifications Heart: No right atrial thrombus. Atherosclerotic calcifications of the coronary arteries. Cardiomegaly. RV/LV ratio: Within normal limits. Pulmonary arteries: There is suboptimal opacification of the pulmonary arteries. No large central pulmonary embolism is detected. Mediastinum: No pathologic sized middle mediastinal lymphadenopathy. Tracheobronchial tree: Unremarkable. Lungs: Lobar consolidation: Negative. Pleural effusion: Negative. Pneumothorax: Negative. Other: Negative. Bones: Unremarkable. IMPRESSION: 1. No CT evidence of acute PE. Electronically signed by: Shahram Londono MD 03/09/2019 3:41 AM HOST/HOSTESS GROUND Vital Signs - 24 hr 03/09/19 03/09/19 03/09/19 01:27 01:32 02:24 Temperature 97.3 F L Pulse Rate [ 56 L 91 H 57 L Left Apical] Respiratory 20 20 Rate Blood Pressure 143/62 120/67 [Left Arm] O2 Sat by Pulse 91 L 91 L Oximetry - EKG/XRAY/CT EKG: Attila, Sinus, RBBB, nonspecific ST T wave Chg Comments: 1st degree AV block with premature atrial complexes w/ aberrant conductio Departure - Departure Clinical Impression: SOB (shortness of breath) Volume overload Qualifiers: Hypervolemia type: unspecified Qualified Code(s): E87.70 - Fluid overload, unspecified Chest pain, unspecified Qualifiers: Chest pain type: unspecified Qualified Code(s): R07.9 - Chest pain, unspecified Time of Disposition: 02:18 Disposition: Admit Patient Home Medications: Ambulatory Orders RX: Allopurinol [Zyloprim] 300 mg PO BEDTIME 04/02/15 RX: Celecoxib 200 mg PO BEDTIME 04/02/15 RX: Clopidogrel Bisulfate [Plavix] 75 mg PO BEDTIME 04/02/15 RX: Furosemide 40 mg PO BID 04/02/15 RX: Hydrochlorothiazide 25 mg PO DAILY 04/02/15 RX: Minoxidil 5 mg PO BID 04/02/15 RX: Nitroglycerin 0.4 mg Tab [Nitrostat] 0.4 mg SL PRN PRN 04/02/15 RX: Omeprazole 40 mg PO DAILY@0700 04/02/15 RX: Potassium Chloride Tab [Micro-K] 20 meq PO BID 04/02/15 RX: Ropinirole Hydrochloride [Ropinirole HCl] 8 mg PO BEDTIME 04/02/15 RX: Rosuvastatin Calcium [Crestor] 5 mg PO BEDTIME 04/02/15 RX: Gabapentin 600 mg PO TID 08/18/16 RX: Metformin HCl [Metformin Hydrochloride] 500 mg PO BIDFD 08/18/16 RX: Trazodone HCl 100 mg PO BEDTIME 08/18/16 RX: Pantoprazole Tablet [Protonix] 40 mg PO DAILY #30 08/20/16 Aspirin [Aspirin Childrens] 1 tablet PO DAILY 03/09/19 Citalopram Hydrobromide [Celexa] 40 mg PO BEDTIME 03/09/19 HYDROcodone 10MG/APAP 325MG [Cisco 10/325] 1 ea PO TID 03/09/19 Irbesartan [Avapro] 75 mg PO BID 03/09/19 Nitroglycerin 0.4 mg Tab [Nitrostat] 0 ea SL .Q5M PRN MDD 3 03/09/19 RX: Multiple Vitamin 1 tab PO DAILY 03/09/19 RX: Trazodone HCl 100 mg PO DAILY 03/09/19 Ropinirole Hydrochloride [Requip Xl] 4 mg PO DAILY 03/09/19 Rosuvastatin Calcium [Crestor] 10 mg PO BEDTIME 03/09/19
--- NOTE | 2019-03-09 02:10 | RAD ---
EXAM: Single view chest. INDICATION: Chest pain. COMPARISON: Chest x-ray: 06/18/2016. FINDINGS: Cardiac silhouette: Enlarged Miesha: Mild pulmonary vascular congestion Lobar consolidation: None. Pleural effusion: None. Pneumothorax: None. Other: None. Bones: Unremarkable. Other: None. 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
[2019-03-09] MEDS ORDERED: FUROSEMIDE INJ 40 MG/4 ML VIAL IV ONE (02:16)
[2019-03-09] MEDS ORDERED: ASPIRIN (CHEWABLE) 81 MG TAB PO ONE (02:49)
--- NOTE | 2019-03-09 03:42 | CT ---
EXAM: CT chest angiogram with contrast. INDICATION: Shortness of breath. TECHNIQUE: Contiguous axial CT images of the chest. Intravenous contrast: Present. Protocol: Pulmonary embolus (PE) protocol angiogram. Reformats: MIPs and MPRs created and utilized. DLP 809 mGy-cm. This exam was performed according to our departmental dose-optimization program, which includes automated exposure control, adjustment of the mA and/or kV according to patient size and/or use of iterative reconstruction technique. Note: LV=left ventricle. RV=right ventricle. COMPARISON: None. FINDINGS: Upper abdomen: Partially imaged. Thoracic aorta: Atherosclerotic calcifications Heart: No right atrial thrombus. Atherosclerotic calcifications of the coronary arteries. Cardiomegaly. RV/LV ratio: Within normal limits. Pulmonary arteries: There is suboptimal opacification of the pulmonary arteries. No large central pulmonary embolism is detected. Mediastinum: No pathologic sized middle mediastinal lymphadenopathy. Tracheobronchial tree: Unremarkable. Lungs: Lobar consolidation: Negative. Pleural effusion: Negative. Pneumothorax: Negative. Other: Negative. Bones: Unremarkable. IMPRESSION: 1. No CT evidence of acute PE. 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
[2019-03-09] MEDS ORDERED: ACETAMINOPHEN 325 MG TAB PO PRN (06:33)
[2019-03-09] MEDS ORDERED: MORPHINE SULFATE INJ 10 MG/ML VIAL IV PRN (06:33)
[2019-03-09] MEDS ORDERED: NITROGLYCERIN 0.4 MG 25 EA TAB SL PRN (06:33)
[2019-03-09] MEDS ORDERED: IV SET AND CAP CHANGE INJ INJ SCH (07:00)
[2019-03-09 08:20] VITALS: TEMP 97
[2019-03-09] MEDS ORDERED: HYDROcodone 10MG/APAP 325MG 1 EA TAB PO PRN (08:54)
[2019-03-09] MEDS ORDERED: PANTOPRAZOLE SODIUM TAB 40 MG PO SCH (09:00)
[2019-03-09] MEDS ORDERED: SODIUM CHLORIDE 0.9% (FLUSH) 10 ML SYG IV SCH (09:00)
[2019-03-09] MEDS ORDERED: MINOXIDIL 2.5 MG TAB PO SCH (09:00)
[2019-03-09] MEDS ORDERED: traZODone HCL 100 MG TAB PO SCH ×2 (09:00→21:00)
[2019-03-09] MEDS ORDERED: IRBESARTAN 75 MG PO SCH (09:00)
[2019-03-09] MEDS ORDERED: hydroCHLOROthiazide 25 MG TAB PO SCH (09:00)
[2019-03-09] MEDS ORDERED: ASPIRIN (CHEWABLE) 81 MG TAB PO SCH (09:00)
[2019-03-09] MEDS ORDERED: POTASSIUM CHLORIDE 10 MEQ TAB PO SCH (09:00)
[2019-03-09] MEDS ORDERED: POTASSIUM CHLORIDE 20 MEQ TAB PO SCH (09:30)
[2019-03-09] MEDS: GABAPENTIN 300 MG CAP PO SCH ×2 (09:57→14:48)
[2019-03-09] MEDS: FUROSEMIDE 40 MG TAB PO SCH ×2 (09:58→14:48)
[2019-03-09 12:52] VITALS: BP 149/76; O2SAT 95
[2019-03-09] MEDS ORDERED: metFORMIN HCL 500 MG TAB PO SCH (17:00)
--- NOTE | 2019-03-09 17:05 | SSS ---
SUPERVISING PHYSICIAN: Eb Sharma MD CHIEF COMPLAINT: Chest pain. DISCHARGE DIAGNOSES: 1. Chest pain, acute coronary syndrome has been ruled out with negative cardiac enzymes and no acute EKG changes. 2. Significant shortness of breath that has been worsening over the last few months. 3. MALLORY with C-PAP that is greater than 15 years old. He does need a new sleep study so he can get a new C-PAP machine. 4. Congestive heart failure of unknown etiology. His new echocardiogram is pending. His last echocardiogram was over 2 years ago. 5. Chronic obstructive pulmonary disease without acute exacerbation. 6. Chronic pain syndrome, mostly due to back pain. He is on [place] chronically. 7. Type 2 diabetes mellitus on oral medications. 8. History of prostate cancer. 9. Hyperlipidemia. 10. Hypertension. 11. Gastroesophageal reflux disease. 12. Gout. HISTORY OF PRESENT ILLNESS: This is a 74 year-old male patient presented to the Emergency Room for left-sided chest pain that started about 3 PM on the day prior to admission. It was constant, there was no radiation and he felt that it was tight in his chest. He had some shortness of breath. He has had several episodes similar to this over the last several weeks, mostly with exertion. He has had a history of an WA and has had stents placed. He also said that he has had some increasing shortness of breath over the last few months but he does have obstructive sleep apnea and his C-PAP is over 15 years old and it does not work anymore and he needs a new sleep study to get a new machine. He has actually been wearing his 's oxygen at home when he gets extremely short of breath. in the Emergency Room, his initial vital signs were temperature 97.3, heart rate 56, blood pressure 143/62, respiratory rate 20, oxygen saturation 91% on room air. Lab was done and his CBC was unremarkable. He did have a D-dimer that was elevated at 0.91. His electrolytes were basically within normal limits. His liver function was within normal limits. He did have a slightly elevated BNP at 365. His initial troponin was 0.04. He was given some Lasix in the Emergency Room as well as 2 baby aspirin and he was placed in observation in the hospital. PAST MEDICAL HISTORY: 1. Chronic pain syndrome secondary to back pain, on [place] routinely. 2. Depression. 3. Osteoarthritis. 4. Type 2 diabetes mellitus on oral medications. 5. Bradycardia. It is reported that he does need a pacemaker. 6. Hyperlipidemia. 7. Hypertension. 8. Gastroesophageal reflux disease. 9. Gout. 10. Prostate cancer. 11. Congestive heart failure of unknown etiology. The patient says his last echocardiogram was in early 2017. PAST SURGICAL HISTORY: 1. Left total knee arthroplasty. 2. Right elbow surgery. 3. Hydrocele repair. Last year at that hospitalization, he did CODE and was on the ventilator for some time. CURRENT MEDICATIONS: 1. Requip. 2. Potassium chloride. 3. Omeprazole. 4. Nitroglycerin. 5. Minoxidil. 6. Hydrochlorothiazide. 7. Furosemide. 8. Celebrex. 9. Zyloprim. 10. Plavix. 11. Trazodone. 12. Metformin. 13. Gabapentin. 14. Protonix. 15. Hydrocodone. 16. Avapro. 17. Celexa. 18. Nitroglycerin. 19. Aspirin. 20. Multivitamin. 21. Lipitor. ALLERGIES: No known drug allergies. FAMILY HISTORY: Positive for hypertension, CVA, Alzheimer's disease, type 2 diabetes mellitus and coronary artery disease. REVIEW OF SYSTEMS: Negative except as per history of present illness. PHYSICAL EXAMINATION: VITAL SIGNS: Temperature 97, heart rate 49, blood pressure 149/76, respiratory rate 18, oxygen saturation 95% on room air. GENERAL: This is a 74 year-old male patient who is lying in his hospital bed. He is in no acute distress. HEENT: Normocephalic and atraumatic. Pupils are equal and reactive. Oropharynx is clear. NECK: Supple without mass. RESPIRATORY: Essentially clear to auscultation bilaterally. Occasionally, he does get slightly tachypneic with a respiratory rate at 22. CHEST: There is equal rise and fall of the chest with inspiration and expiration. CARDIOVASCULAR: Bradycardic rate, regular rhythm. ABDOMEN: Soft, nondistended, non-tender. Bowel sounds are positive. EXTREMITIES: No cyanosis, clubbing, or edema. NEUROLOGIC: He is awake, alert, and oriented x3. Cranial nerves II through XII are grossly intact. SKIN: Warm and dry. LABORATORY: Serial cardiac enzymes all negative. Chest x-ray shows mild pulmonary vascular congestion. CTA of the chest and thorax shows no CT evidence of acute pulmonary embol. His echocardiogram results are still pending. All other labs and films have been reviewed via the EMR. DISCHARGE PLAN: The patient will be discharged home in stable condition. He is to followup with Dr. Paul Arevalo as well as his linen folder in [facility] for his scheduled appointment in March. At his appointment with Dr. Worthy, the echocardiogram can be reviewed. It is also recommended that he have a sleep study scheduled so he can get a new C-PAP machine. An ambulatory study was done here but he did not qualify for oxygen at this time and most likely if he got a sleep study that may help with his shortness of breath. His home medications were restarted in the hospital. He had no complaints of chest pain while being in the hospital and he is to resume his previous, activity, as well as home medications. There were no new medications started. He is to return to the hospital or followup with Dr. Worthy for any problems or complications. RADIOLOGY: Chest x-ray showed mild pulmonary vascular congestion. His serial cardiac enzymes were all negative. CC: Report and the patient's echocardiogram to Dr. Paul Worthy, [facility]. #[id number] [facility]
[2019-03-09] MEDS ORDERED: NON-FORMULARY MEDICATION 1 EA MIS (Rosuvastatin Calcium [Crestor] 5 MG) PO SCH (21:00)
[2019-03-09] MEDS ORDERED: ENOXAPARIN SODIUM 40 MG/0.4 ML SYG SUBCU SCH (21:00)
[2019-03-09] MEDS ORDERED: CELECOXIB 100 MG CAP PO SCH (21:00)
[2019-03-09] MEDS ORDERED: ATORVASTATIN 10 MG TAB PO SCH (21:00)
[2019-03-09] MEDS ORDERED: ALLOPURINOL 300 MG TAB PO SCH (21:00)
[2019-03-09] MEDS ORDERED: CITALOPRAM HBR 20 MG TAB PO SCH (21:00)
[2019-03-09] MEDS ORDERED: NON-FORMULARY MEDICATION 1 EA MIS (Rosuvastatin Calcium [Crestor] 10 MG) PO SCH (21:00)
[2019-03-09] MEDS ORDERED: CLOPIDOGREL 75 MG TAB PO SCH (21:00)
[2019-03-10] MEDS ORDERED: NON-FORMULARY MEDICATION 1 EA MIS (Omeprazole [Omeprazole] 40 MG) PO SCH (07:00)
[2019-03-10] MEDS ORDERED: ASPIRIN TABLET 325 MG TAB PO SCH (09:00)
== END 2019-03-09 16:30 | disposition home or self-care (01) ==
LOC: ER 01:24 → MS 03:52
PROVIDERS: ADMIT Nurse Practitioner Acute Care; ATTEND Nurse Practitioner Acute Care
DX: R07.89 Other chest pain (principal); R06.02 Shortness of breath; G47.33 Obstructive sleep apnea (adult) (pediatric); I11.0 Hypertensive heart disease with heart failure; I50.9 Heart failure, unspecified; J44.9 Chronic obstructive pulmonary disease, unspecified; G89.4 Chronic pain syndrome; E11.9 Type 2 diabetes mellitus without complications; E78.5 Hyperlipidemia, unspecified; K21.9 Gastro-esophageal reflux disease without esophagitis; M10.9 Gout, unspecified; F32.9 Major depressive disorder, single episode, unspecified; I44.0 Atrioventricular block, first degree; I45.10 Unspecified right bundle-branch block; I34.0 Nonrheumatic mitral (valve) insufficiency; I36.1 Nonrheumatic tricuspid (valve) insufficiency; I35.1 Nonrheumatic aortic (valve) insufficiency; Z99.89 Dependence on other enabling machines and devices; Z85.46 Personal history of malignant neoplasm of prostate; Z79.891 Long term (current) use of opiate analgesic; Z79.84 Long term (current) use of oral hypoglycemic drugs; Z79.02 Long term (current) use of antithrombotics/antiplatelets; Z79.82 Long term (current) use of aspirin; Z79.899 Other long term (current) drug therapy; Z96.652 Presence of left artificial knee joint; Z82.49 Family history of ischemic heart disease and other diseases of the circulatory system; Z82.3 Family history of stroke; Z83.3 Family history of diabetes mellitus; Z84.89 Family history of other specified conditions
CPT/HCPCS: 96374; J1940; 85379; 82553 ×2; 80053; 36415 ×2; 85025; 82550 ×2; 84484 ×3; 83880; 71045; 71275; 94760; 99285; 93306; 93005 ×3

== ENCOUNTER → 2019-08-29 | Outpatient (CLI) | payer MEDICARE ==
--- NOTE | 2019-08-29 17:17 | CT ---
EXAM DESCRIPTION: Head: Computed Tomography. CLINICAL HISTORY: TENSION TYPE HEADACHE. Trauma one month ago. COMPARISON: None. TECHNIQUE: Non-helical axial scans through the skull and brain, at 2 mm x 20 mm intervals, non-contrast. Coronal and sagittal 2.0 mm reconstructions. Total Exam DLP: 860 mGy-cm. This exam was performed according to our departmental dose-optimization program which includes automated exposure control, adjustment of the mA and/or kV according to patient size and/or use of iterative reconstruction technique; to reduce radiation dose to as low as reasonably achievable (ALARA). FINDINGS: No hemorrhage, no mass-effect, and no midline shift. Normal zhu-white matter differentiation. Bilateral vascular calcifications in the basal ganglia and in the cerebellum and tonsils. Vascular calcifications anterior and posterior circulations; physiologic calcifications in the pineal gland and choroid plexus. No effacement or displacement of the ventricles, CSF spaces, or subdural spaces. No extra axial fluid collection or hemorrhage. No gross abnormalities of the bony calvarium. Mastoid air cells are negative. Polyp versus cyst anterior right maxillary antrum. Bilateral mucoperiosteal thickening in the bases. Also minimal thickening in the anterior ethmoid air cells. No air-fluid levels. IMPRESSION: 1. No hemorrhage, no mass effect, no midline shift. Age-related changes in the brain parenchyma. Also microvascular calcifications. No extra-axial hemorrhage. 2. CT scans are insensitive for detecting small CVAs in the first 24 hours after onset. Evaluation of the brain stem is also limited. If symptoms persist, consider NON-EMERGENT MRI scan of the brain with diffusion imaging. 3. Chronic paranasal sinusitis, including large polyp or cyst anterior right maxillary antrum. No air-fluid levels. CRITICAL COMMUNICATION: The critical value was communicated directly by Dr. Kaiser via phone call, with Dr. Simone Duffy, at approximately 1603 hours, on August 29, 2019. Electronically signed by: Jasen Kaiser MD 08/29/2019 5:15 PM CDT
== END ==
LOC: CT 15:00
PROVIDERS: ATTEND Family Medicine
DX: G44.209 Tension-type headache, unspecified, not intractable (principal); I67.2 Cerebral atherosclerosis; J32.9 Chronic sinusitis, unspecified; J34.89 Other specified disorders of nose and nasal sinuses

== ENCOUNTER → 2019-12-19 | Outpatient (CLI) | payer MEDICARE ==
--- NOTE | 2019-12-20 08:03 | CT ---
TECHNIQUE: Spiral CT examination of the paranasal sinuses. Multiplanar reformats provided. This exam was performed according to our departmental dose-optimization program, which includes automated exposure control, adjustment of the mA and/or kV according to patient size and/or use of iterative reconstruction technique. CLINICAL HISTORY PROVIDED: CHRONIC MAXILLARY SINUSITIS COMPARISON: None available. FINDINGS: Right: Maxillary: Mucosal retention cyst measuring 1.2 cm anteriorly. Trace mucosal disease in the floor the maxillary sinus. Ethmoid: Trace mucosal disease. Sphenoid: Unremarkable. Frontal: Unremarkable. Infundibulum: Narrowed but patent. Middle Meatus: Unremarkable. Left: Maxillary: Mild mucosal disease inferiorly. Ethmoid: Trace mucosal disease. Sphenoid: Unremarkable. Frontal: Unremarkable. Infundibulum: Unremarkable. Middle Meatus: Unremarkable. Nasal Passage: Septal Deviation: 3 mm leftward nasal septal deviation. Septal Spur: None of significance. Mucosa: Moderate mucosal hypertrophy. Maeve Bullosa: Not present. Notable Anatomic Findings: None of significance. Visible Brain and Orbits: Unremarkable. Incidental Findings: None of significance. IMPRESSION: Scattered mucosal thickening in the paranasal sinuses. No CT evidence of acute or chronic sinusitis. Electronically signed by: Vaughn Chong MD 12/20/2019 8:00 AM CDT
== END ==
LOC: CT 09:54
PROVIDERS: ATTEND Family Medicine
DX: J32.0 Chronic maxillary sinusitis (principal); Z85.46 Personal history of malignant neoplasm of prostate; E78.2 Mixed hyperlipidemia; E11.9 Type 2 diabetes mellitus without complications; I10 Essential (primary) hypertension

== ENCOUNTER → 2020-02-28 | Outpatient (CLI) | payer MEDICARE ==
--- NOTE | 2020-02-29 13:48 | US ---
EXAM DESCRIPTION: Extremity,Lower Shawn Arteries: Ultrasound. CLINICAL HISTORY: ATHEROSCLEROSIS OF TRIBAL ARTERIES WITH CLAUDICATION COMPARISON: None. TECHNIQUE: Doppler evaluation of the bilateral lower extremity arterial flow waveforms and velocities. FINDINGS: Arterial waveforms in the right lower extremity are all multiphasic from the right common femoral artery through the right dorsalis pedis artery. Arterial waveforms in the left lower extremity are all multiphasic from the left common femoral artery through the left dorsalis pedis artery.. Comments: Decreased velocity in the right dorsalis pedis artery. IMPRESSION: Doppler ultrasound of the bilateral lower extremity arterial system shows no evidence of significant atherosclerotic occlusive disease.. Possible early atherosclerotic occlusive disease in the right dorsalis pedis artery seen in the morphology of the waveform and decreased velocity. Electronically signed by: Jasen Kaiser MD 02/29/2020 1:46 PM CRIMINAL RESEARCHER
== END ==
LOC: US 13:32
PROVIDERS: ATTEND Family Medicine
DX: I70.213 Atherosclerosis of native arteries of extremities with intermittent claudication, bilateral legs (principal)

== ENCOUNTER → 2020-04-23 | Outpatient (CLI) | payer MEDICARE | LOC: GMAJ 11:16 | PROVIDERS: ATTEND Family Medicine | DX: M10.00 Idiopathic gout, unspecified site (principal); E78.2 Mixed hyperlipidemia; I10 Essential (primary) hypertension ==